=== PATIENT | female | born 1985 | race Caucasian/White ===

== ENCOUNTER 2021-05-09 18:20 | Emergency (ER) | payer MEDICAID ==
[2021-05-09] MEDS ORDERED: DEXAMETHASONE 10 MG/ML VIAL PO STA (20:45)
[2021-05-09] MEDS ORDERED: CHERRY SYRUP 10 ML UDC PO ONE (20:46)
[2021-05-09] MEDS ORDERED: diphenhydrAMINE 25 MG CAPSULE PO STA (20:46)
[2021-05-09 20:59] LABS: RAPID STREP SCREEN Negative (Negative)
--- NOTE | 2021-05-09 21:20 | ED Physician Documentation ---
History of Present Illness - Stated complaint Stated Complaint: RUNNY NOSE, COUGH, EARACHE, DIZZY - Chief complaint Chief Complaint: General - Additonal information Additional information: 35-year-old female presents emergency department for evaluation of 4 days cough, cold, congestion as well as now new left ear pain. She just returned from [place] last week. She has only recently obtained her first COVID-19 vaccine as it was not available to her in [place] where she was living. Her children are also sick with similar. The patient endorses a sore throat but her biggest concern is the left ear pain. Non-smoker. Unremarkable personal medical history. Review of Systems Constitutional: denies: Fever, Chills, Myalgias Eyes: reports: Reviewed and negative Ears: reports: Ear pain Nose: reports: Rhinorrhea / runny nose, Congestion Throat: reports: Sore throat Cardiac: denies: Chest pain / pressure, Palpitations Respiratory: reports: Cough. denies: Dyspnea GI: denies: Abdominal Pain, Abdominal Swelling, Nausea : reports: Reviewed and negative Skin: reports: Reviewed and negative Musculoskeletal: reports: Reviewed and negative PD PAST MEDICAL HISTORY - Past Medical History Past Medical History: No - Past Surgical History Past Surgical History: No - Allergies Allergies/Adverse Reactions: Allergies Allergy/AdvReac Type Severity Reaction Status Date / Time amoxicillin Allergy Rash Verified 05/09/21 18:24 - Social History Does the pt smoke?: No Smoking Status: Never smoker Does the pt drink ETOH?: No Does the pt have substance abuse?: No - Immunizations Immunizations are current?: Yes - POLST Patient has POLST: No PD ED PE NORMAL - General General: Alert and oriented X 3, No acute distress - HEENT HEENT: Atraumatic, EOMI, Moist mucous membranes, Other (Retracted left eardrum without an effusion. Ear canals unremarkable. Unremarkable right TM.). No: Pharynx benign (Posterior oropharynx erythema. No exudate. Uvula is midline. No soft palate asymmetry.) - Neck Neck: Supple, no meningeal sign. No: No adenopathy (Tender left cervical adenopathy.) - Cardiac Cardiac: RRR, No murmur, No gallop - Respiratory Respiratory: No respiratory distress, Clear bilaterally - Abdomen Abdomen: Normal bowel sounds, Soft, Non tender, Non distended - Back Back: No CVA TTP, No spinal TTP Results - Vitals Vitals: Vital Signs - 24 hr 05/09/21 18:24 Temperature 36.9 C Heart Rate 90 Respiratory 18 Rate Blood Pressure 146/85 H O2 Saturation 98 Oxygen O2 Source Room air - Labs Labs: Laboratory Tests 05/09/21 20:39 Group A Strep Rapid Negative PD MEDICAL DECISION MAKING - ED course Complexity details: reviewed results, considered differential, d/w patient ED course: 35-year-old female presents emergency department for evaluation of 4 days cough cold congestion and now left ear pain. [place] had been living. Her children are sick with similar. On exam she has a retracted left eardrum but no effusion. Given lack of fever will defer antibiotics. I suspect she has eustachian tube dysfunction in the setting of congestion. Patient was given a dose of Benadryl tonight and I have recommended Benadryl at night with Sudafed in the a.m. to help clean dry her sinuses. Also discussed the importance of nasal rinses and Flonase. Rapid strep is negative will defer antibiotics unless culture positive. She has been given a COVID-19 screening test. Advised to remain in quarantine until the results are known. Emergent return precautions discussed. Departure - Departure Disposition: 01 Home, Self Care Clinical Impression: Upper respiratory infection Qualifiers: URI type: unspecified viral URI Qualified Code(s): J06.9 - Acute upper respiratory infection, unspecified Eustachian tube dysfunction Qualifiers: Laterality: left Qualified Code(s): H69.82 - Other specified disorders of Eustachian tube, left ear Condition: Stable Record reviewed to determine appropriate education?: Yes Comments: [place] you were seen today for 4 days of cough, congestion as well as left ear pain. Your rapid strep is negative. We are doing a Covid screen given recent travel. We will only call you if the result is positive. You have pain in the left ear because your eustachian tubes are blocked. However there is no inner year ear infection. In order to help with this I have given you a dose of Benadryl tonight. The anticholinergic effect of Benadryl should help dry up your sinuses overnight. Tomorrow morning I would like you to take some Sudafed. Take this only for 2 or 3 days. This will help unblock your eustachian tubes and should help provide significant relief. You can also find relief of the congestion by doing saline nasal rinses in the shower and using Flonase nasal spray when you get out. If at any point you find that your symptoms are worsening, you have fevers higher than 102, you have drainage from your ear or cannot talk or swallow normally then please return immediately to the ER for a second evaluation.
[2021-05-09] MEDS ORDERED: ACETAMINOPHEN 325 MG TABLET PO STA (21:32)
[2021-05-09 21:44] VITALS: BP 138/65
--- NOTE | 2021-05-12 18:20 | ED Physician Documentation ---
ED Addendum - Addendum Addendum: 05/12/21 18:19 Throat culture grew out group C strep. Amoxicillin gives the patient a rash. Will place on Keflex 500 mg p.o. 4 times daily x10 days. Prescription sent to [facility] in [place]. Departure - Departure Disposition: 01 Home, Self Care Clinical Impression: Upper respiratory infection Qualifiers: URI type: unspecified viral URI Qualified Code(s): J06.9 - Acute upper respiratory infection, unspecified Eustachian tube dysfunction Qualifiers: Laterality: left Qualified Code(s): H69.82 - Other specified disorders of Eustachian tube, left ear Condition: Stable Prescriptions: cephALEXin [Keflex] 500 mg PO Q6H #40 cap Comments: [place] you were seen today for 4 days of cough, congestion as well as left ear pain. Your rapid strep is negative. We are doing a Covid screen given recent travel. We will only call you if the result is positive. You have pain in the left ear because your eustachian tubes are blocked. However there is no inner year ear infection. In order to help with this I have given you a dose of Benadryl tonight. The anticholinergic effect of Benadryl should help dry up your sinuses overnight. Tomorrow morning I would like you to take some Sudafed. Take this only for 2 or 3 days. This will help unblock your eustachian tubes and should help provide significant relief. You can also find relief of the congestion by doing saline nasal rinses in the shower and using Flonase nasal spray when you get out. If at any point you find that your symptoms are worsening, you have fevers higher than 102, you have drainage from your ear or cannot talk or swallow normally then please return immediately to the ER for a second evaluation. Discharge Date/Time: 05/09/21 21:40
== END 2021-05-09 21:40 | disposition home or self-care (01) ==
LOC: ED 18:20
DX: J02.0 Streptococcal pharyngitis (principal); H69.82 Other specified disorders of Eustachian tube, left ear; Z20.822 Contact with and (suspected) exposure to COVID-19
CPT/HCPCS: 87070; 87077; 87430; 87635; 99283; 99284; A9270